=== PATIENT | female | born 1945 | race Caucasian/White ===

== ENCOUNTER 2018-03-09 09:30 | Emergency (ER) | payer MEDICARE, OTHER ==
[2018-03-09 09:39] VITALS: TEMP 97.6
[2018-03-09] MEDS ORDERED: SODIUM CHLORIDE 0.9% FLUSH 10 ML SOL IV PRN (09:54)
[2018-03-09 10:23] LABS: BASOPHILS % (AUTO) 1 % (0-3); EOSINOPHILS % (AUTO) 9 % (0-9); HEMATOCRIT 34 % (35-47); HEMOGLOBIN 10.5 gm/dl (12.0-15.5); LYMPHOCYTES % (AUTO) 20.1 % (10-50); MEAN CORPUSCULAR HEMOGLOBIN 24.5 pg (27.0-32.0); MEAN CORPUSCULAR HGB CONC 30.6 gm/dl (32.0-36.0); MONOCYTES % (AUTO) 5.9 % (0-12); NEUTROPHILS % (AUTO) 64.7 % (37-80)
[2018-03-09 10:25] LABS: INR 0.97 (0.86-1.12)
[2018-03-09 10:33] LABS: CALCIUM 8.8 mg/dl (8.5-10.1); CARBON DIOXIDE 25.5 mEq/L (21-32); CREATININE 1.55 mg/dl (0.60-1.00); POTASSIUM 3.9 mMol/L (3.5-5.1)
[2018-03-09 10:45] LABS: TROP I 0.024 ng/ml (0.000-0.056)
[2018-03-09 10:47] LABS: MEAN CORPUSCULAR VOLUME 80 fL (81-99)
[2018-03-09] MEDS ORDERED: LOSARTAN POTASSIUM 50 MG TAB ONE (10:53)
[2018-03-09] MEDS ORDERED: LOSARTAN POTASSIUM 50 MG TAB PO SCH (11:00)
[2018-03-09 11:12] LABS: ANISOCYTOSIS SLIGHT; OVALOCYTES PRESENT; POIKILOCYTOSIS SLIGHT
[2018-03-09] MEDS ORDERED: SODIUM CHLORIDE 0.9% 1000ML 1,000 ML IV ONE (11:37)
[2018-03-09 11:44] VITALS: BP 175/69; PULSE 64; RESP 21; O2SAT 96
== END 2018-03-09 12:00 | disposition short-term general hospital (02) | DRG 313 ==
LOC: ED 09:30
DX: R07.9 Chest pain, unspecified (principal); I25.110 Atherosclerotic heart disease of native coronary artery with unstable angina pectoris; E11.8 Type 2 diabetes mellitus with unspecified complications; I10 Essential (primary) hypertension; R06.00 Dyspnea, unspecified
CPT/HCPCS: 36415; 71045; 80048; 82550; 83880; 84484; 85025; 85610; 85730; 93005; 99285; 99291; A9270-GY

== ENCOUNTER 2018-12-07 07:14 | Emergency (ER) | payer MEDICARE, OTHER ==
[2018-12-07] MEDS ORDERED: SODIUM CHLORIDE 0.9% FLUSH 10 ML SOL IV PRN (07:26)
[2018-12-07] MEDS ORDERED: NITROGLYCERIN 0.4 MG TAB SL PRN (07:26)
[2018-12-07 07:47] LABS: BASOPHILS % (AUTO) 0 % (0-3); EOSINOPHILS % (AUTO) 0 % (0-9); HEMATOCRIT 33 % (35-47); HEMOGLOBIN 10.2 gm/dl (12.0-15.5); LYMPHOCYTES % (AUTO) 13.1 % (10-50); MEAN CORPUSCULAR HEMOGLOBIN 24.4 pg (27.0-32.0); MEAN CORPUSCULAR HGB CONC 30.7 gm/dl (32.0-36.0); MONOCYTES % (AUTO) 5.8 % (0-12); NEUTROPHILS % (AUTO) 80.7 % (37-80)
[2018-12-07 07:50] LABS: INR 1.06 (0.86-1.12)
[2018-12-07 07:55] VITALS: TEMP 98.2
[2018-12-07 07:55] LABS: BLOOD UREA NITROGEN 38 mg/dl (7-18); CALCIUM 9.2 mg/dl (8.5-10.1); CARBON DIOXIDE 24.5 mEq/L (21-32); CHLORIDE 104 mMol/L (98-107); CREATINE KINASE 68 U/L (26-192); CREATININE 1.82 mg/dl (0.60-1.00); GLUCOSE 294 mg/dl (74-106); MAGNESIUM 1.2 mg/dl (1.8-2.4); POTASSIUM 3.4 mMol/L (3.5-5.1); SODIUM 139 mMol/L (136-145); TROP I < 0.017 ng/ml (0.000-0.056)
[2018-12-07 07:56] LABS: MEAN CORPUSCULAR VOLUME 79 fL (81-99)
[2018-12-07 07:57] LABS: ANISOCYTOSIS MOD AMT
[2018-12-07] MEDS ORDERED: POTASSIUM CHLORIDE 10 MEQ TER PO ONE (08:28)
[2018-12-07] MEDS ORDERED: MAGNESIUM OXIDE 400 MG TAB PO SCH (08:30)
[2018-12-07] MEDS ORDERED: ALBUTEROL NEB SOL 2.5MG/3ML 1 VIAL SOL NEB ONE (08:33)
[2018-12-07] MEDS ORDERED: CLOPIDOGREL 75 MG TAB PO ONE (08:39)
[2018-12-07] MEDS ORDERED: POTASSIUM CHLORIDE 10 MEQ TER ONE (08:41)
[2018-12-07] MEDS ORDERED: ALBUTEROL NEB SOL 2.5MG/3ML 1 VIAL SOL ONE (08:41)
[2018-12-07] MEDS ORDERED: FUROSEMIDE 40 MG TAB PO SCH ×2 (08:45→09:00)
[2018-12-07] MEDS ORDERED: GABAPENTIN 300 MG CAP PO SCH (08:45)
[2018-12-07] MEDS ORDERED: METOPROLOL SUCCINATE 50 MG ER TAB PO SCH (08:45)
[2018-12-07] MEDS ORDERED: ISOSORBIDE MONONITRATE 30 MG TER PO SCH (08:45)
[2018-12-07] MEDS ORDERED: LOSARTAN POTASSIUM 50 MG TAB PO SCH (08:45)
[2018-12-07] MEDS ORDERED: MAGNESIUM OXIDE 400 MG TAB ONE (08:47)
[2018-12-07] MEDS ORDERED: CLOPIDOGREL 75 MG TAB ONE (08:56)
[2018-12-07] MEDS ORDERED: FUROSEMIDE 40 MG TAB ONE (08:56)
[2018-12-07] MEDS ORDERED: GABAPENTIN 300 MG CAP ONE (08:56)
[2018-12-07] MEDS ORDERED: METOPROLOL SUCCINATE 50 MG ER TAB ONE (08:57)
[2018-12-07] MEDS ORDERED: LOSARTAN POTASSIUM 50 MG TAB ONE (08:57)
[2018-12-07] MEDS ORDERED: ISOSORBIDE MONONITRATE 30 MG TER PO ONE (08:57)
[2018-12-07] MEDS ORDERED: ACETAMINOPHEN 500 MG 500 MG TAB PO ONE (09:02)
[2018-12-07 14:45] VITALS: BP 141/65; PULSE 64; RESP 18; O2SAT 94
== END 2018-12-07 09:37 | disposition home or self-care (01) | DRG 313 ==
LOC: ED 07:14
DX: R07.9 Chest pain, unspecified (principal); I25.110 Atherosclerotic heart disease of native coronary artery with unstable angina pectoris; M94.0 Chondrocostal junction syndrome [Tietze]; E87.6 Hypokalemia; E83.42 Hypomagnesemia
CPT/HCPCS: 36415; 71045; 80048; 82550; 83735; 83880; 84484; 85025; 85610; 85730; 93005; 99284; 99285; J7613; A9270; A9270-GY